=== PATIENT | female | born 1955 | race Caucasian/White ===

== ENCOUNTER → 2016-12-15 | Outpatient (CLI) | payer OTHER ==
[~2016-12-15] MED LIST: ATOR10TA15 PO; DIFL0.0512 RIGHT EYE; EMPA1TAB3 PO; GLIM4TAB PO; LOSA100T3 PO; METF500T PO; MULT1TAB PO; NEPA0.3D RIGHT EYE; PRED1SUS RIGHT EYE; VIGA0.5D RIGHT EYE; VITA500C18 PO
[2016-12-15 11:58] LABS: MICRO ALBUMIN RANDOM URINE RAW 61.8 MG/L (0.0-30.0)
[2016-12-15 12:12] LABS: ALKALINE PHOSPHATASE 65 U/L (45-117); ALT (GPT) 34 U/L (10-53); ANION GAP 8 MEQ/L (5-15); AST (GOT) 15 U/L (15-37); BICARBONATE 31.1 MEQ/L (21.0-32.0); BLOOD UREA NITROGEN 16 MG/DL (7-18); CHLORIDE 100 MEQ/L (98-107); GLOMERULAR FILTRATION RATE 99 ML/MIN (>89); GLUCOSE,FASTING 149 MG/DL (74-99); HDL CHOLESTEROL 71.7 MG/DL (40.0-60.0); LDL CHOLESTEROL 109 MG/DL (0-99); POTASSIUM 4.1 MEQ/L (3.5-5.1); SODIUM (NA) 139 MEQ/L (136-145); TOTAL BILIRUBIN ADULT 0.6 MG/DL (0.2-1.0)
[2016-12-15 19:17] LABS: HEMOGLOBIN A1a 0.9 %; HEMOGLOBIN A1b 2.4 %; HEMOGLOBIN Ao 81.1 %; HEMOGLOBIN LA1C 2.4 %; HEMOGLOBIN P3 4.5 %
== END ==
LOC: CLAB 10:59
DX: E11.65 Type 2 diabetes mellitus with hyperglycemia (principal)
CPT/HCPCS: 36415; 80053; 80061; 82043; 83036

== ENCOUNTER → 2017-04-07 | Outpatient (CLI) | payer OTHER ==
[2017-04-07 14:06] LABS: AUTOMATED NEUTROPHIL # 5.1 TH/MM3 (1.8-7.7); BASOPHIL % 0.5 % (0.0-2.0); EOSINOPHIL # 0.3 TH/MM3 (0-0.4); EOSINOPHIL % 3.3 % (0.0-4.0); HEMATOCRIT 45.1 % (35.0-46.0); HEMO FLAGS DIFF FINAL; LYMPHOCYTE # 1.4 TH/MM3 (1.0-4.8); MEAN CELL VOLUME 88.3 FL (80.0-100.0); MEAN CORPUSCULAR HEMOGLOBIN 29.1 PG (27.0-34.0); MEAN CORPUSCULAR HGB CONC 32.9 % (32.0-36.0); MONO % 10.5 % (0.0-8.0); NEUT % 66.7 % (16.0-70.0); PLATELET COUNT 266 TH/MM3 (150-450); RED BLOOD COUNT 5.11 MIL/MM3 (4.00-5.30); RED CELL DISTRIBUTION WIDTH 13.4 % (11.6-17.2); WHITE BLOOD COUNT 7.6 TH/MM3 (4.0-11.0)
--- NOTE | 2017-04-09 10:11 | EKG ---
Date Performed: 04/07/2017 Time Performed: 13:54:27 PTAGE: 61 years EKG: Sinus rhythm LOW QRS VOLTAGE IN PRECORDIAL LEADS MODERATE VOLTAGE CRITERIA FOR LVH, CONSIDER NORMAL VARIANT SAMUEL KIM ECG PREVIOUS TRACING : 07/15/2015 07.05 DOCTOR: Miguel Angel Nolen Interpretating Date/Time 04/09/2017 09:54:45
== END ==
LOC: CPRE 13:39
PROVIDERS: ATTEND Ophthalmology
DX: Z01.812 Encounter for preprocedural laboratory examination (principal); Z01.810 Encounter for preprocedural cardiovascular examination; H25.13 Age-related nuclear cataract, bilateral; R94.31 Abnormal electrocardiogram [ECG] [EKG]
CPT/HCPCS: 36415; 85025; 93005

== ENCOUNTER → 2017-04-12 | Outpatient (CLI) | payer OTHER ==
[2017-04-12 08:19] LABS: AUTOMATED NEUTROPHIL # 4.4 TH/MM3 (1.8-7.7); BASOPHIL % 0.3 % (0.0-2.0); EOSINOPHIL # 0.3 TH/MM3 (0-0.4); EOSINOPHIL % 4.3 % (0.0-4.0); HEMATOCRIT 46.6 % (35.0-46.0); HEMO FLAGS DIFF FINAL; LYMPH % 18.9 % (9.0-44.0); LYMPHOCYTE # 1.3 TH/MM3 (1.0-4.8); MEAN CORPUSCULAR HEMOGLOBIN 29.1 PG (27.0-34.0); MEAN CORPUSCULAR HGB CONC 33.1 % (32.0-36.0); MONO % 10.9 % (0.0-8.0); NEUT % 65.6 % (16.0-70.0); PLATELET COUNT 274 TH/MM3 (150-450); RED CELL DISTRIBUTION WIDTH 13.5 % (11.6-17.2); WHITE BLOOD COUNT 6.6 TH/MM3 (4.0-11.0)
[2017-04-12 08:42] LABS: ANION GAP 11 MEQ/L (5-15); AST (GOT) 17 U/L (15-37); BICARBONATE 27.5 MEQ/L (21.0-32.0); BLOOD UREA NITROGEN 18 MG/DL (7-18); CHLORIDE 101 MEQ/L (98-107); GLOMERULAR FILTRATION RATE 123 ML/MIN (>89); GLUCOSE,FASTING 157 MG/DL (74-99); POTASSIUM 4.1 MEQ/L (3.5-5.1); SODIUM (NA) 139 MEQ/L (136-145)
[2017-04-12 08:46] LABS: ALKALINE PHOSPHATASE 62 U/L (45-117); ALT (GPT) 33 U/L (10-53); HDL CHOLESTEROL 56.2 MG/DL (40.0-60.0); LDL CHOLESTEROL 87 MG/DL (0-99); TOTAL BILIRUBIN ADULT 0.5 MG/DL (0.2-1.0)
[2017-04-12 08:47] LABS: MICRO ALBUMIN RANDOM URINE RAW 15.2 MG/L (0.0-30.0)
[2017-04-12 16:47] LABS: HEMOGLOBIN A1a 0.9 %; HEMOGLOBIN A1b 2.5 %; HEMOGLOBIN Ao 81.2 %; HEMOGLOBIN LA1C 2.4 %; HEMOGLOBIN P3 4.4 %
== END ==
LOC: CLAB 07:47
PROVIDERS: ATTEND Family Medicine
DX: D64.9 Anemia, unspecified (principal); E78.2 Mixed hyperlipidemia; E11.9 Type 2 diabetes mellitus without complications; Z79.899 Other long term (current) drug therapy
CPT/HCPCS: 36415; 80053; 80061; 82043; 83036; 85025

== ENCOUNTER → 2017-04-19 | Day surgery (SDC) | payer OTHER ==
[~2017-04-19] VITALS: Ht 167.6 cm; Wt 95.2 kg
[~2017-04-19] MED LIST changes: +ACETAMINOPHEN 325 MG TAB ONE; +CYCLOPENTOLATE HCL 1% OPHT SOLN 2 ML BTL ONE; +FAMOTIDINE 20 MG/2 ML VIAL ONE; +MIDAZOLAM HCL 2 MG/2 ML VIAL ONE; +ONDANSETRON HCL 4 MG/2 ML VIAL IV PUSH ONE; +PHENYLEPHRINE HCL 10% OPTH SOLN 5 ML BTL ONE; +PROPOFOL 200 MG/20 ML AMP IV ONE; +SODIUM CHLORID 0.9% 500 ML INJ 500 ML ONE; +TETRACAINE 0.5% OPTH SOLN 4 ML BTL ONE; +TOBRAMYCIN/DEXAMETHASONE OPTH OINT 3.5 GM TUBE ONE; +TROPICAMIDE 1% OPHT SOLN 15 ML BTL ONE; +VISCOAT OPHT IRRIG SOLN 0.75 ML SYRINGE RIGHT EYE ONE
[2017-04-19 06:50] VITALS: BP 163/90; PULSE 86; RESP 16; TEMP 98.4; O2SAT 97
[2017-04-19 08:46] VITALS: PULSE 90
[2017-04-19 09:15] VITALS: PULSE 87; TEMP 98.6
[2017-04-19 09:45] VITALS: BP 148/90; PULSE 80; RESP 14; O2SAT 97
--- NOTE | 2017-04-19 11:00 | PD.OP ---
Operative Report Date of Surgery: Apr 19, 2017 Preoperative Diagnosis: (1) Nuclear sclerotic cataract of right eye Postoperative Diagnosis: (1) Pseudophakia of right eye Procedure: phacoemulsification and intraocular lens implant right eye Anesthesia: General Surgeon: Nguyen Aguilar Housekeeping/Laundry(s): none Operation and Findings: Patient was consented for surgery, and taken back to the operating room. She was put under general anesthesia and prepped and draped in the usual sterile fashion for ophthalmic surgery. A wire lid speculum was placed in the right eye. A paracentesis incision was created at the 11 o'clock position on the limbus. Vision blue dye and viscoelastic was injected into the anterior chamber. The main incision was created at the 8 o'clock position on the limbus with a 2.4 mm keratome. A continuous curvilinear capsulorrhexis was made on the anterior lens capsule. Hydrodissection was used to separate the lens from the capsule. Phacoemulsification was used to remove the lens nucleus material. Irrigation and aspiration was used to remove the remaining cortical material. The lens implant ([id number]) was placed in the capsular bag. Viscoelastic was removed with irrigation and aspiration. The incisions were irrigated and found to be watertight. Tobradex ointment, a patch, and shield were placed on the right eye. The patient was sent to PACU in stable condition. Nguyen Aguilar MD Apr 19, 2017 11:00
== END | disposition home or self-care (01) ==
LOC: PHSDC 06:27
PROVIDERS: ATTEND Ophthalmology
DX: H25.11 Age-related nuclear cataract, right eye (principal)
CPT/HCPCS: 00142; 66984; J2250; J2405; J7040; V2632

== ENCOUNTER → 2017-05-01 | Outpatient (CLI) | payer OTHER ==
[~2017-05-01] MED LIST changes: -ACETAMINOPHEN 325 MG TAB ONE; -CYCLOPENTOLATE HCL 1% OPHT SOLN 2 ML BTL ONE; -DIFL0.0512 RIGHT EYE; -FAMOTIDINE 20 MG/2 ML VIAL ONE; -MIDAZOLAM HCL 2 MG/2 ML VIAL ONE; -ONDANSETRON HCL 4 MG/2 ML VIAL IV PUSH ONE; -PHENYLEPHRINE HCL 10% OPTH SOLN 5 ML BTL ONE; -PROPOFOL 200 MG/20 ML AMP IV ONE; -SODIUM CHLORID 0.9% 500 ML INJ 500 ML ONE; -TETRACAINE 0.5% OPTH SOLN 4 ML BTL ONE; -TOBRAMYCIN/DEXAMETHASONE OPTH OINT 3.5 GM TUBE ONE; -TROPICAMIDE 1% OPHT SOLN 15 ML BTL ONE; +VIGA0.5D LEFT EYE; -VISCOAT OPHT IRRIG SOLN 0.75 ML SYRINGE RIGHT EYE ONE
[2017-05-01 13:06] LABS: AUTOMATED NEUTROPHIL # 5.4 TH/MM3 (1.8-7.7); BASOPHIL % 0.3 % (0.0-2.0); EOSINOPHIL # 0.2 TH/MM3 (0-0.4); EOSINOPHIL % 2.5 % (0.0-4.0); HEMATOCRIT 43.3 % (35.0-46.0); HEMO FLAGS DIFF FINAL; LYMPHOCYTE # 1.9 TH/MM3 (1.0-4.8); MEAN CORPUSCULAR HEMOGLOBIN 29.3 PG (27.0-34.0); MEAN CORPUSCULAR HGB CONC 33.3 % (32.0-36.0); MONO % 8.2 % (0.0-8.0); PLATELET COUNT 261 TH/MM3 (150-450); RED BLOOD COUNT 4.92 MIL/MM3 (4.00-5.30); RED CELL DISTRIBUTION WIDTH 13.2 % (11.6-17.2); WHITE BLOOD COUNT 8.2 TH/MM3 (4.0-11.0)
== END ==
LOC: CLAB 12:46
PROVIDERS: ATTEND Ophthalmology
DX: I10 Essential (primary) hypertension (principal)
CPT/HCPCS: 36415; 85025

== ENCOUNTER → 2017-05-10 | Day surgery (SDC) | payer OTHER ==
[~2017-05-10] VITALS: Ht 170.2 cm; Wt 93.5 kg
[~2017-05-10] MED LIST changes: +ACETAMINOPHEN 325 MG TAB ONE; +BRIN1SUS2 LEFT EYE; +CHLORHEXIDINE GLUCONATE 2 % 1 PACK (2 CLOTHS) TOPICAL PRN; +FAMOTIDINE 20 MG/2 ML VIAL ONE; +INSULIN HUMAN REGULAR 1,000 UNITS/10 ML VIAL SQ PRN; +LACTATED RINGER'S 1000 ML IV PRN; +LIDOCAINE HCL 1% PF 30 ML VIAL ONE; +LOSA100T2 PO; +METOPROLOL TARTRATE 25 MG TAB PO PRN; +MIDAZOLAM HCL 2 MG/2 ML VIAL ONE; +NEPA0.3D EACH EYE; +PANT40TA3 PO; +POVIDONE IODINE 5% (ANTISEPSIS KIT) 4 APPLICATIONS EACH NARE PRN; +PRED1SUS EACH EYE; +SODIUM CHLORID 0.9% 500 ML IV PRN; +TIMO0.5S30 LEFT EYE; +TOBRAMYCIN/DEXAMETHASONE OPTH OINT 3.5 GM TUBE ONE; +TRYPAN BLUE 0.5 ML OPHT DYE SYRINGE ONE; +VISCOAT OPHT IRRIG SOLN 0.75 ML SYRINGE ONE
[2017-05-10 09:00] VITALS: BP 163/85; PULSE 91; RESP 16; TEMP 98.1; O2SAT 95
[2017-05-10] MEDS: TROPICAMIDE 1% OPHT SOLN 15 ML BTL LEFT EYE SCH ×3 (09:10→09:20)
[2017-05-10] MEDS: CYCLOPENTOLATE HCL 1% OPHT SOLN 2 ML BTL LEFT EYE SCH ×3 (09:10→09:20)
[2017-05-10] MEDS: TETRACAINE 0.5% OPTH SOLN 4 ML BTL LEFT EYE SCH ×4 (09:10→10:37)
[2017-05-10] MEDS: PHENYLEPHRINE HCL 10% OPTH SOLN 5 ML BTL LEFT EYE SCH ×3 (09:10→09:20)
--- NOTE | 2017-05-10 10:54 | PD.OP ---
Operative Report Date of Surgery: May 10, 2017 Preoperative Diagnosis: (1) Nuclear sclerotic cataract of left eye Postoperative Diagnosis: (1) Pseudophakia of left eye Procedure: phacoemulsification and intraocular lens implant left eye Anesthesia: General Surgeon: Nguyen Aguilar Blankbook Forwarder(s): none Operation and Findings: Patient was consented for surgery and taken back to the operating room. She was put under general anesthesia and prepped and draped in the usual sterile fashion for ophthalmic surgery. A wire lid speculum was placed in the left eye. A paracentesis incision was created at the 5 o'clock position on the limbus. Vision blue dye and viscoelastic was injected into the anterior chamber. The main incision was created at the 2 o'clock position on the limbus with a 2.4 mm keratome. A continuous curvilinear capsulorrhexis was made on the anterior lens capsule. Phacoemulsification was used to remove the lens nucleus material. Irrigation and aspiration was used to remove the remaining cortical material. A small posterior rent was noted on the capsule. The lens implant ([id number] [id number] SN [id number]) was placed in the sulcus. Viscoelastic was removed with irrigation and aspiration. The incisions were irrigated and found to be watertight. A 10-0 nylon suture was placed on the main incision. Tobradex ointment, a patch, and shield were placed on the left eye. The patient was sent to PACU in stable condition. Nguyen Aguilar MD May 10, 2017 10:54
[2017-05-10 11:25] VITALS: TEMP 98.1
[2017-05-10 11:55] VITALS: BP 148/86; PULSE 92; RESP 16; O2SAT 96
== END | disposition home or self-care (01) ==
LOC: PHSDC 08:38
PROVIDERS: ATTEND Ophthalmology
DX: H25.12 Age-related nuclear cataract, left eye (principal); Z96.1 Presence of intraocular lens; I10 Essential (primary) hypertension; E78.5 Hyperlipidemia, unspecified
CPT/HCPCS: 00142; 66984; J2250; J3010; J7040; V2632

== ENCOUNTER 2017-05-14 15:00 | Inpatient (IN) | payer OTHER ==
[~2017-05-14] VITALS: Ht 170.2 cm; Wt 90.0 kg
[~2017-05-14 15:00] MED LIST changes: -ACETAMINOPHEN 325 MG TAB ONE; -BRIN1SUS2 LEFT EYE; -CHLORHEXIDINE GLUCONATE 2 % 1 PACK (2 CLOTHS) TOPICAL PRN; -FAMOTIDINE 20 MG/2 ML VIAL ONE; -INSULIN HUMAN REGULAR 1,000 UNITS/10 ML VIAL SQ PRN; -LACTATED RINGER'S 1000 ML IV PRN; -LIDOCAINE HCL 1% PF 30 ML VIAL ONE; -LOSA100T2 PO; -METOPROLOL TARTRATE 25 MG TAB PO PRN; -MIDAZOLAM HCL 2 MG/2 ML VIAL ONE; -NEPA0.3D EACH EYE; -PANT40TA3 PO; -POVIDONE IODINE 5% (ANTISEPSIS KIT) 4 APPLICATIONS EACH NARE PRN; -PRED1SUS EACH EYE; -SODIUM CHLORID 0.9% 500 ML IV PRN; -TIMO0.5S30 LEFT EYE; -TOBRAMYCIN/DEXAMETHASONE OPTH OINT 3.5 GM TUBE ONE; -TRYPAN BLUE 0.5 ML OPHT DYE SYRINGE ONE; -VIGA0.5D RIGHT EYE; -VISCOAT OPHT IRRIG SOLN 0.75 ML SYRINGE ONE
[2017-05-14 15:02] VITALS: BP 161/72; PULSE 109; RESP 20; TEMP 98.5; O2SAT 99
[2017-05-14] MEDS ORDERED: LOSA100T2 PO (15:42)
[2017-05-14 15:53] LABS: BLOOD, URINE NEG (NEG); COMMENT (UR) CULT NOT INDICATED; CULTURE IF INDICATED CULT NOT INDICATED; GLUCOSE,URINE 1000 mg/dL (NEG); KETONE, URINE 40 mg/dL (NEG); MUCUS URINE FEW /lpf (OCC); NITRITE,URINE NEG (NEG); PH, URINE 5.5 (5.0-8.5); SQUAMOUS EPITHELIAL CELL URINE 3 /hpf (0-5); URINE COLOR YELLOW (YELLW/STRAW)
[2017-05-14] MEDS ORDERED: SODIUM CHLOR 0.9% 1000 ML INJ 1,000 ML IV SCH (16:35)
[2017-05-14] MEDS ORDERED: ONDANSETRON HCL 4 MG/2 ML VIAL IVP ONE (16:45)
[2017-05-14] MEDS ORDERED: SODIUM CHLORIDE 0.9% FLUSH 10 ML FLUSH IV FLUSH PRN ×2 (16:45→19:00)
[2017-05-14] MEDS ORDERED: FAMOTIDINE 20 MG/2 ML VIAL IV PUSH ONE (16:45)
[2017-05-14 17:20] LABS: AUTOMATED NEUTROPHIL # 13.9 TH/MM3 (1.8-7.7); BASOPHIL % 0.1 % (0.0-2.0); EOSINOPHIL % 0.2 % (0.0-4.0); HEMATOCRIT 51.9 % (35.0-46.0); HEMO FLAGS DIFF FINAL; LYMPH % 11.7 % (9.0-44.0); LYMPHOCYTE # 2.1 TH/MM3 (1.0-4.8); MEAN CELL VOLUME 87.1 FL (80.0-100.0); MEAN CORPUSCULAR HEMOGLOBIN 29.9 PG (27.0-34.0); MEAN CORPUSCULAR HGB CONC 34.3 % (32.0-36.0); MONO % 9.6 % (0.0-8.0); NEUT % 78.4 % (16.0-70.0); PLATELET COUNT 372 TH/MM3 (150-450); RED BLOOD COUNT 5.96 MIL/MM3 (4.00-5.30); RED CELL DISTRIBUTION WIDTH 13.5 % (11.6-17.2); WHITE BLOOD COUNT 17.8 TH/MM3 (4.0-11.0)
--- NOTE | 2017-05-14 17:27 | PD ---
HPI Chief Complaint: GI Complaint Time Seen by Provider: 16:56 Travel History International Travel<30 days: No Contact w/Intl Traveler<30days: No Traveled to known affect area: No History of Present Illness HPI Patient is a 61-year-old female comes in complaining of nausea, vomiting, abdominal pain. She says this started Froylan, and she thought it was related to the as he does old might she was taking for her recent eye surgery, but she has since stopped taking the medication and is still feeling very nauseous. She says she has pain across the middle of her abdomen. She denies any headache or pressure sensation to her eye. She says her vision is fine. She denies fever or chills, but did have a cold sweats during the first episode of nausea and vomiting. She denies any dysuria, but says that her urine has a foul odor. PFSH Past Medical History Cancer: No Cardiovascular Problems: Yes (HTN) Diabetes: Yes (METFORMIN) Patient Takes Glucophage: Yes (METFORMIN ) Diminished Hearing: No Endocrine: Yes Gastrointestinal Disorders: No Genitourinary: No Hepatitis: No Hiatal Hernia: No Hypertension: Yes Immune Disorder: No Musculoskeletal: Yes (PAIN RIGHT KNEE, CALCIFICATION IN LEFT SHOULDER) Neurologic: Yes (LEFT CTR 06/2015) Psychiatric: No Reproductive: No Respiratory: No Pneumonia: Yes Thyroid Disease: No Menopausal: Yes Dilation and Curettage (D&C): Yes Past Surgical History Abdominal Surgery: No AICD: No Body Medical Devices: NONE Cardiac Surgery: No Ear Surgery: No Endocrine Surgery: No Eye Surgery: No Genitourinary Surgery: No Gynecologic Surgery: Yes (D&C; TUBAL LIGATION; PARTIAL HYSTERECTOMY ) Hysterectomy: Yes (PARTIAL ) Joint Replacement: No Neurologic Surgery: Yes (LT CTR 06/2015) Oral Surgery: Yes (WISDOM TEETH EXTRACTED) Pacemaker: No Thoracic Surgery: No Other Surgery: Yes Social History Alcohol Use: Yes (OCCASIONAL) Tobacco Use: No (QUIT 15 YEARS AGO ) Substance Use: No Allergies-Medications (Allergen,Severity, Reaction): Coded Allergies: No Known Allergies (Unverified , 05/17/17) Reported Meds & Prescriptions Reported Meds & Active Scripts Active Vigamox Opth Drops (Moxifloxacin Opth Drops) 0.5 % Soln 1 Drop LEFT EYE QID Reported Losartan-Hydrochlorothiazide 100-25 Mg Tab 1 Tab PO DAILY Centrum Silver Adult 50+ (Multiple Vitamins W/ Minerals) 1 Tab Tab 1 Tab PO DAILY Vitamin C Sr (Ascorbic Acid) 500 Mg Caper 500 Mg PO DAILY Jardiance (Empagliflozin) 25 Mg Tab 25 Mg PO DAILY Atorvastatin (Atorvastatin Calcium) 10 Mg Tab 10 Mg PO HS Metformin (Metformin HCl) 500 Mg Tab 500 Mg PO BIDPC With meals Glimepiride 4 Mg Tab 4 Mg PO BID Take with breakfast or first main meal Review of Systems Except as stated in HPI: all other systems reviewed are Neg General / Constitutional: No: Fever, Chills Eyes: No: Blurred Vision HENT: No: Headaches, Lightheadedness Cardiovascular: No: Chest Pain or Discomfort Respiratory: No: Shortness of Breath Gastrointestinal: Positive: Nausea, Vomiting, Abdominal Pain Genitourinary: No: Dysuria Musculoskeletal: No: Myalgias Skin: No Rash, No Change in Pigmentation Neurologic: No: Weakness, Dizziness Physical Exam Narrative GENERAL: Awake and alert, in no acute distress. SKIN: Focused skin assessment warm/dry. HEAD: Atraumatic. Normocephalic. EYES: Pupils equal and round. No scleral icterus. ENT: Mucous membranes pink and moist. NECK: Trachea midline. No JVD. CARDIOVASCULAR: Regular rate and rhythm. No murmur appreciated. RESPIRATORY: No accessory muscle use. Clear to auscultation. Breath sounds equal bilaterally. GASTROINTESTINAL: Abdomen soft, nondistended. Tender to palpation across the middle of the abdomen, worse in the right upper quadrant and epigastric area. No rebound or guarding. MUSCULOSKELETAL: No obvious deformities. No clubbing. No cyanosis. No edema. NEUROLOGICAL: Awake and alert. No obvious cranial nerve deficits. Motor grossly within normal limits. Normal speech. PSYCHIATRIC: Appropriate mood and affect; insight and judgment normal. Data Data Last Documented VS Orders Urinalysis - C+S If Indicated (05/14/17 15:17) Basic Metabolic Panel (Bmp) (05/14/17 16:35) Complete Blood Count With Diff (05/14/17 16:35) Lipase (05/14/17 16:35) Lactic Acid (05/14/17 16:35) Prothrombin Time / Inr (Pt) (05/14/17 16:35) Act Partial Throm Time (Ptt) (05/14/17 16:35) Ct Abd/Pel W Iv Contrast(Rout) (05/14/17 16:35) Iv Access Insert/Monitor (05/14/17 16:35) Ecg Monitoring (05/14/17 16:35) Oximetry (05/14/17 16:35) Ondansetron Inj (Zofran Inj) (05/14/17 16:45) Sodium Chlor 0.9% 1000 Ml Inj (Ns 1000 M (05/14/17 16:35) Sodium Chloride 0.9% Flush (Ns Flush) (05/14/17 16:45) Famotidine Inj (Pepcid Inj) (05/14/17 16:45) Hepatic Functional Panel (05/14/17 16:35) Prochlorperazine Inj (Compazine Inj) (05/14/17 17:30) Diphenhydramine Inj (Benadryl Inj) (05/14/17 17:30) Sodium Chlor 0.9% 1000 Ml Inj (Ns 1000 M (05/14/17 18:15) Sodium Chlor 0.9% 1000 Ml Inj (Ns 1000 M (05/14/17 18:15) Sodium Chlor 0.9% 1000 Ml Inj (Ns 1000 M (05/14/17 18:15) Lactic Acid Sepsis Protocol (05/14/17 18:07) Iohexol 350 Inj (Omnipaque 350 Inj) (05/14/17 18:11) Morphine Inj (Morphine Inj) (05/14/17 18:30) Ceftriaxone Inj (Rocephin Inj) (05/14/17 18:45) Admit Order (Ed Use Only) (05/14/17 18:50) Labs MDM Medical Decision Making Medical Screen Exam Complete: Yes Emergency Medical Condition: Yes Medical Record Reviewed: Yes Differential Diagnosis Gastroenteritis versus cholecystitis versus pancreatitis versus colitis Narrative Course Patient is a 61-year-old female comes in complaining of abdominal pain, nausea or vomiting. Exam shows tenderness across the middle of the abdomen. IV established, labs sent. Patient given IV fluids and Zofran. Signed out to Dr. Hendricks to follow up testing and disposition the patient. Scripts Pantoprazole 40 Mg Tab40 Mg PO DAILY #30 TAB Ref 0 Prov:Jacqueline Rodriguez 05/16/17 Margie Nagel MD May 14, 2017 17:27 Urine Glucose (UA) 1000 mg/dL Urine Ketones 40 mg/dL Urine Occult Blood NEG Urine Nitrite NEG Urine Bilirubin NEG Urine Urobilinogen LESS THAN 2.0 MG/DL Urine Leukocyte Esterase SMALL Urine RBC 3 /hpf Urine WBC 4 /hpf Urine Squamous Epithelial 3 /hpf Cells Urine Amorphous Sediment RARE Urine Mucus FEW /lpf Microscopic Urinalysis Comment CULT NOT INDICATED MDM Medical Decision Making Medical Screen Exam Complete: Yes Emergency Medical Condition: Yes Medical Record Reviewed: Yes Differential Diagnosis Gastroenteritis versus cholecystitis versus pancreatitis versus colitis Narrative Course Patient is a 61-year-old female comes in complaining of abdominal pain, nausea or vomiting. Exam shows tenderness across the middle of the abdomen. IV established, labs sent. Patient given IV fluids and Zofran. Signed out to Dr. Hendricks to follow up testing and disposition the patient. Margie Nagel MD May 14, 2017 17:27
[2017-05-14] MEDS ORDERED: MORPHINE SULFATE 4 MG/ML INJ IV PUSH ONE (17:30)
[2017-05-14] MEDS ORDERED: diphenhydrAMINE HCL 50 MG/ML VIAL IV PUSH ONE (17:30)
[2017-05-14] MEDS ORDERED: PROCHLORPERAZINE INJ 10 MG/2 ML VIAL IV PUSH ONE (17:30)
[2017-05-14 17:32] LABS: BICARBONATE 20.8 MEQ/L (21.0-32.0); POTASSIUM 3.1 MEQ/L (3.5-5.1)
[2017-05-14 17:34] LABS: INDIRECT BILIRUBIN 0.8 MG/DL (0.0-0.8)
[2017-05-14 17:44] LABS: APTT (PATIENT) 28.1 SEC (24.3-30.1); PROTHROMBIN TIME - PATIENT 11.1 SEC (9.8-11.6)
--- NOTE | 2017-05-14 17:56 | PD ---
Physical Exam Date Seen by Provider: May 14, 2017 Narrative Care was assumed from Dr. Nagel at 5 PM. This patient is being seen for abdominal pain associated with nausea and vomiting. Data Data Last Documented VS Vital Signs Date Time Temp Pulse Resp B/P Pulse Ox O2 Delivery O2 Flow Rate FiO2 05/14/17 15:02 98.5 109 20 161/72 99 Room Air Orders Urinalysis - C+S If Indicated (05/14/17 15:17) Basic Metabolic Panel (Bmp) (05/14/17 16:35) Complete Blood Count With Diff (05/14/17 16:35) Lipase (05/14/17 16:35) Lactic Acid (05/14/17 16:35) Prothrombin Time / Inr (Pt) (05/14/17 16:35) Act Partial Throm Time (Ptt) (05/14/17 16:35) Ct Abd/Pel W Iv Contrast(Rout) (05/14/17 16:35) Iv Access Insert/Monitor (05/14/17 16:35) Ecg Monitoring (05/14/17 16:35) Oximetry (05/14/17 16:35) Ondansetron Inj (Zofran Inj) (05/14/17 16:45) Sodium Chlor 0.9% 1000 Ml Inj (Ns 1000 M (05/14/17 16:35) Sodium Chloride 0.9% Flush (Ns Flush) (05/14/17 16:45) Famotidine Inj (Pepcid Inj) (05/14/17 16:45) Hepatic Functional Panel (05/14/17 16:35) Prochlorperazine Inj (Compazine Inj) (05/14/17 17:30) Diphenhydramine Inj (Benadryl Inj) (05/14/17 17:30) Sodium Chlor 0.9% 1000 Ml Inj (Ns 1000 M (05/14/17 18:15) Sodium Chlor 0.9% 1000 Ml Inj (Ns 1000 M (05/14/17 18:15) Sodium Chlor 0.9% 1000 Ml Inj (Ns 1000 M (05/14/17 18:15) Lactic Acid Sepsis Protocol (05/14/17 18:07) Iohexol 350 Inj (Omnipaque 350 Inj) (05/14/17 18:11) Morphine Inj (Morphine Inj) (05/14/17 18:30) Ceftriaxone Inj (Rocephin Inj) (05/14/17 18:45) Labs Laboratory Tests Test 05/14/17 05/14/17 15:26 16:30 Urine Color YELLOW Urine Turbidity CLEAR Urine pH 5.5 Urine Specific [place] 1.030 Urine Protein 30 mg/dL Urine Glucose (UA) 1000 mg/dL Urine Ketones 40 mg/dL Urine Occult Blood NEG Urine Nitrite NEG Urine Bilirubin NEG Urine Urobilinogen LESS THAN 2.0 MG/DL Urine Leukocyte Esterase SMALL Urine RBC 3 /hpf Urine WBC 4 /hpf Urine Squamous Epithelial 3 /hpf Cells Urine Amorphous Sediment RARE Urine Mucus FEW /lpf Microscopic Urinalysis Comment CULT NOT INDICATED White Blood Count 17.8 TH/MM3 Red Blood Count 5.96 MIL/MM3 Hemoglobin 17.8 GM/DL Hematocrit 51.9 % Mean Corpuscular Volume 87.1 FL Mean Corpuscular Hemoglobin 29.9 PG Mean Corpuscular Hemoglobin 34.3 % Concent Red Cell Distribution Width 13.5 % Platelet Count 372 TH/MM3 Mean Platelet Volume 8.4 FL Neutrophils (%) (Auto) 78.4 % Lymphocytes (%) (Auto) 11.7 % Monocytes (%) (Auto) 9.6 % Eosinophils (%) (Auto) 0.2 % Basophils (%) (Auto) 0.1 % Neutrophils # (Auto) 13.9 TH/MM3 Lymphocytes # (Auto) 2.1 TH/MM3 Monocytes # (Auto) 1.7 TH/MM3 Eosinophils # (Auto) 0.0 TH/MM3 Basophils # (Auto) 0.0 TH/MM3 CBC Comment DIFF FINAL Differential Comment Prothrombin Time 11.1 SEC Prothromb Time International 1.0 RATIO Ratio Activated Partial 28.1 SEC Thromboplast Time Sodium Level 133 MEQ/L Potassium Level 3.1 MEQ/L Chloride Level 97 MEQ/L Carbon Dioxide Level 20.8 MEQ/L Anion Gap 15 MEQ/L Blood Urea Nitrogen 32 MG/DL Creatinine 0.79 MG/DL Estimat Glomerular Filtration 74 ML/MIN Rate Random Glucose 342 MG/DL Lactic Acid Level 2.7 mmol/L Calcium Level 9.1 MG/DL Total Bilirubin 1.0 MG/DL Direct Bilirubin 0.2 MG/DL Indirect Bilirubin 0.8 MG/DL Aspartate Amino Transf 11 U/L (AST/SGOT) Alanine Aminotransferase 26 U/L (ALT/SGPT) Alkaline Phosphatase 82 U/L Total Protein 8.3 GM/DL Albumin 4.0 GM/DL Lipase 96 U/L MDM Supervised Visit with [facility]: No Narrative Course The patient is still complaining with nausea and significant pain. As been treated with Zofran and Pepcid so far. I have added Compazine, Benadryl and morphine. CBC & BMP Diagram 05/14/17 16:30 Lactic acid is 2.7. LFTs are normal. Lipase is normal. UA has small leukocyte esterase and [address] abd/pelvis>>Fatty liver and probable left adrenal adenoma. No CT findings to explain abd pain and vomiting. This patient will be admitted for severe sepsis, possible UTI, abdominal pain and vomiting. Critical Care Narrative Aggregate critical care time was 45 minutes. Time to perform other separately billable procedures was not included in the critical care time. My time did not include minutes spent treating any other patients simultaneously or on activities that did not directly contribute to the patient's treatment. The services I provided to this patient were to treat and/or prevent clinically significant deterioration due to severe sepsis I provided critical care services requiring my management, as noted below: Chart data review, documentation time, medication orders and management, vital sign assessments/reviewing monitor data, ordering and reviewing lab tests, ordering and interpreting/reviewing x-rays and diagnostic studies, care of the patient and discussion of the patient with the admitting physicians Sepsis Criteria SIRS Criteria (2 or more): Heart rate over 90, WBC > 48607, < 4000 or > 10% bands Sepsis Criteria (SIRS+source): Infect source susp/known Severe Sepsis (+one): Lactate >2 Diagnosis Primary Impression: Severe sepsis Additional Impressions: UTI (urinary tract infection) Qualified Code: N39.0 - Urinary tract infection without hematuria, site unspecified Abdominal pain Qualified Code: R10.11 - Right upper quadrant abdominal pain Vomiting Qualified Code: R11.2 - Non-intractable vomiting with nausea, unspecified vomiting type Admitting Information Admitting Physician Requests: Admit Condition: Nelly Talamantes MD May 14, 2017 17:55
[2017-05-14] MEDS ORDERED: IOHEXOL 350 MG/ML 10 ML VIAL (for RAD DIAG) IV ONE (18:11)
[2017-05-14] MEDS ORDERED: SODIUM CHLOR 0.9% 1000 ML INJ 1,000 ML IV ONE ×3 (18:15)
--- NOTE | 2017-05-14 18:28 | RADRPT ---
EXAM DATE/TIME: 05/14/2017 17:54 [facility] COMPARISON: No previous studies available for comparison. INDICATIONS : Diffuse abdomen pain with nausea and vomiting for two days. IV CONTRAST: 92 cc Omnipaque 350 (iohexol) IV ORAL CONTRAST: No oral contrast ingested. RADIATION DOSE: 12.55 CTDIvol (mGy) MEDICAL HISTORY : Hypertension. Cardiovascular disease SURGICAL HISTORY : Hysterectomy. ENCOUNTER: Initial ACUITY: 2 days PAIN SCALE: 7/10 LOCATION: Bilateral abdomen TECHNIQUE: Volumetric scanning of the abdomen and pelvis was performed. Using automated exposure control and ad justment of the mA and/or kV according to patient size, radiation dose was kept as low as reasonably achievable to obtain optimal diagnostic quality images. DICOM format image data is available electro nically for review and comparison. FINDINGS: CT Abdomen: The spleen, pancreas, kidneys, right adrenal are unremarkable. There is no evidence for a ny appreciable pathological adenopathy, free fluid, or bowel obstruction. The liver is fatty without focal lesions or technique. Approximate 2 cm low attenuating left adrenal nodule is seen. CT pelvis: There is no evidence for mass, abscess formation, or any significant adenopathy within the pelvis. CONCLUSION: Fatty liver and probable left adrenal adenoma. Jovita Bernard MD on May 14, 2017 at 18:22 Board Certified Radiologist. This report was verified electronically.
[2017-05-14] MEDS ORDERED: MORPHINE SULFATE 8 MG/ML INJ IV PUSH ONE (18:30)
[2017-05-14] MEDS ORDERED: cefTRIAXone INJ 1,000 MG in SODIUM CHLORIDE 0.9% INJ 25 ML IV ONE (18:45)
[2017-05-14] MEDS ORDERED: NALOXONE HCL 0.4 MG/ML AMP IV PRN (19:00)
[2017-05-14] MEDS ORDERED: MAGNESIUM HYDROXIDE SUSP 30 ML CUP PO PRN (19:00)
[2017-05-14] MEDS ORDERED: LACTULOSE SYRUP 20 GM/30 ML CUP PO PRN (19:00)
[2017-05-14] MEDS ORDERED: ONDANSETRON HCL 4 MG/2 ML VIAL IVP PRN (19:00)
[2017-05-14] MEDS ORDERED: BISACODYL 10 MG SUPP RECTAL PRN (19:00)
[2017-05-14] MEDS ORDERED: DEXTROSE 50% IN WATER 50 ML VIAL(D50) IV PRN (19:00)
[2017-05-14] MEDS ORDERED: SENNOSIDES 8.6 MG TAB PO PRN (19:00)
[2017-05-14] MEDS ORDERED: GLUCAGON 1 MG/ML VIAL OTHER PRN (19:00)
[2017-05-14 19:51] VITALS: BP 131/78; PULSE 71; RESP 16; O2SAT 97
[2017-05-14 19:52] VITALS: RESP 16; O2SAT 97
[2017-05-14] MEDS: SODIUM CHLORIDE 0.9% FLUSH 10 ML FLUSH IV FLUSH SCH (21:00)
[2017-05-14 21:03] LABS: LACTIC ACID GHOST NOT REPORTABLE
[2017-05-14 22:34] VITALS: BP 139/79; PULSE 88; RESP 18; TEMP 98.7; O2SAT 96
[2017-05-14] MEDS: DOCUSATE SODIUM 50 MG/SENNA 8.6 MG TAB PO SCH (23:51)
[2017-05-14] MEDS: HEPARIN SODIUM - SQ 10,000 UNITS/ML VIAL SQ SCH (23:52)
[2017-05-14] MEDS: INSULIN ASPART SUPPLEMENTAL SCALE SQ SCH (23:53)
[2017-05-14] MEDS: SODIUM CHLOR 0.45% 1000 ML INJ 1,000 ML IV SCH (23:54)
--- NOTE | 2017-05-14 23:58 | HHI.HP ---
HPI Service [facility] Primary Care Physician Earle Russell, DO Admission Diagnosis sepsis, abd pain, vomiting Diagnoses: Travel History International Travel<30 Days: No Contact w/Intl Traveler <30 Da: No Traveled to Known Affected Are: No History of Present Illness This is a 61 year-old female patient of . She was seen at the emergency department at [facility] with 3 days of nausea, vomiting, abdominal pain most in the right upper quadrant. The patient had cataract surgery on her left eye one week prior. She was also complaining of lightheadedness. She was seen by the undersigned in room D 41. She is alert and oriented. Feeling a little better since she received some pain and nausea medications. She received 1 g of IV Rocephin also IV fluids. She has been complaining of lightheadedness. She was found with lactic acid level of 2.7 and a white count of 417.8. She denies any urinary symptoms. No blood in her vomitus. No trouble breathing. Review of Systems Other As detailed above, 10 systems reviewed otherwise negative Past Family Social History Past Medical History Obesity diabetes mellitus cataract Hypertension hyperlipidemia Past Surgical History Left Cataract surgery one week ago Left carpal tunnel release Tubal ligation Partial hysterectomy Left shoulder surgery Reported Medications Reported Meds & Active Scripts Active Vigamox Opth Drops (Moxifloxacin Opth Drops) 0.5 % Soln 1 Drop LEFT EYE QID Ilevro Opth Drops (Nepafenac) 0.3 % Soln 1 Drop RIGHT EYE DAILY Reported Timolol Opth Drops 0.5 % Soln 1 Drop LEFT EYE BID Simbrinza Opth Drops (Brinzolamide-Brimonidine Opth Drops) 1-0.2% Susp 1 Drop LEFT EYE TID Losartan-Hydrochlorothiazide 100-25 Mg Tab 1 Tab PO DAILY Pred Forte Opth 1% (Prednisolone Acetate Opth 1%) 1% Susp 1 Drop RIGHT EYE QID Centrum Silver Adult 50+ (Multiple Vitamins W/ Minerals) 1 Tab Tab 1 Tab PO DAILY Vitamin C Sr (Ascorbic Acid) 500 Mg Caper 500 Mg PO DAILY Jardiance (Empagliflozin) 25 Mg Tab 25 Mg PO DAILY Atorvastatin (Atorvastatin Calcium) 10 Mg Tab 10 Mg PO HS Metformin (Metformin HCl) 500 Mg Tab 500 Mg PO BIDPC With meals Glimepiride 4 Mg Tab 4 Mg PO BID Take with breakfast or first main meal Allergies: Coded Allergies: No Known Allergies (Unverified , 05/14/17) Family History Reviewed but not contributory Social History No alcohol, no tobacco or illicit drug use Physical Exam Vital Signs Vital Signs Date Time Temp Pulse Resp B/P Pulse Ox O2 Delivery O2 Flow Rate FiO2 05/14/17 22:34 98.7 88 18 139/79 96 05/14/17 19:52 16 97 Room Air 05/14/17 19:51 71 16 131/78 97 Room Air 05/14/17 15:02 98.5 109 20 161/72 99 Room Air Physical Exam GENERAL: This is a pleasant, obese, well-developed patient, in no apparent distress. SKIN: No rashes, ecchymoses or lesions. Cool and dry. HEAD: Atraumatic. Normocephalic. No temporal or scalp tenderness. EYES: Left eye with a patch in place ENT: Nose without bleeding, purulent drainage or septal hematoma. Throat without erythema, tonsillar hypertrophy or exudate. Uvula midline. Airway patent. NECK: Trachea midline. No JVD or lymphadenopathy. Supple, nontender, no meningeal signs. CARDIOVASCULAR: Regular rate and rhythm without murmurs, gallops, or rubs. RESPIRATORY: Clear to auscultation. Breath sounds equal bilaterally. No wheezes , rales, or rhonchi. GASTROINTESTINAL: Abdomen soft, tender right upper quadrant MUSCULOSKELETAL: Extremities without clubbing, cyanosis, or edema. No joint tenderness, effusion, or edema noted. No calf tenderness. Negative Homans sign bilaterally. NEUROLOGICAL: Awake and alert. Cranial nerves II through XII intact. Normal speech. Laboratory Laboratory Tests Test 05/14/17 05/14/17 05/14/17 05/14/17 15:26 16:30 18:45 22:00 Urine Color YELLOW Urine Turbidity CLEAR Urine pH 5.5 Urine Specific [place] 1.030 Urine Protein 30 Urine Glucose (UA) 1000 Urine Ketones 40 Urine Occult Blood NEG Urine Nitrite NEG Urine Bilirubin NEG Urine Urobilinogen LESS THAN 2.0 Urine Leukocyte Esterase SMALL Urine RBC 3 Urine WBC 4 Urine Squamous Epithelial 3 Cells Urine Amorphous Sediment RARE Urine Mucus FEW Microscopic Urinalysis Comment CULT NOT INDICATED White Blood Count 17.8 Red Blood Count 5.96 Hemoglobin 17.8 Hematocrit 51.9 Mean Corpuscular Volume 87.1 Mean Corpuscular Hemoglobin 29.9 Mean Corpuscular Hemoglobin 34.3 Concent Red Cell Distribution Width 13.5 Platelet Count 372 Mean Platelet Volume 8.4 Neutrophils (%) (Auto) 78.4 Lymphocytes (%) (Auto) 11.7 Monocytes (%) (Auto) 9.6 Eosinophils (%) (Auto) 0.2 Basophils (%) (Auto) 0.1 Neutrophils # (Auto) 13.9 Lymphocytes # (Auto) 2.1 Monocytes # (Auto) 1.7 Eosinophils # (Auto) 0.0 Basophils # (Auto) 0.0 CBC Comment DIFF FINAL Differential Comment Prothrombin Time 11.1 Prothromb Time International 1.0 Ratio Activated Partial 28.1 Thromboplast Time Sodium Level 133 Potassium Level 3.1 Chloride Level 97 Carbon Dioxide Level 20.8 Anion Gap 15 Blood Urea Nitrogen 32 Creatinine 0.79 Estimat Glomerular Filtration 74 Rate Random Glucose 342 Lactic Acid Level 2.7 2.5 1.7 Calcium Level 9.1 Total Bilirubin 1.0 Direct Bilirubin 0.2 Indirect Bilirubin 0.8 Aspartate Amino Transf 11 (AST/SGOT) Alanine Aminotransferase 26 (ALT/SGPT) Alkaline Phosphatase 82 Total Protein 8.3 Albumin 4.0 Lipase 96 Date/Time Procedure Status Source Growth 05/14/17 18:40 Aerobic Blood Culture Received Blood Peripheral Pending 05/14/17 18:40 Anaerobic Blood Culture Received Blood Peripheral Pending Result Diagram: 05/14/17 1630 05/14/17 1630 Imaging Last 24 hours Impressions Liver Ultrasound 05/15/17 0000 Signed Impressions: Service Date/Time: Monday, May 15, 2017 07:51 - CONCLUSION: Mildly fatty liver. Minimal sludge in the gallbladder. No evidence of biliary tree obstruction. Miguel Angel Richards MD Abdomen/Pelvis CT 05/14/17 1635 Signed Impressions: Service Date/Time: Sunday, May 14, 2017 17:54 - CONCLUSION: Fatty liver and probable left adrenal adenoma. Jovita Bernard MD Assessment and Plan Assessment and Plan Assessment Nausea and vomiting Abdominal pain, mostly in the right upper quadrant Leukocytosis Sepsis Left adrenal enlargement, unclear if clinically relevant Management Patient has been administered on observation status IV fluids Pain control Nausea control IV Zosyn Hida scan ordered, rule out cholecystitis Discussed with patient Discussed with nurse DVT prophylaxis Continue home medications Discussed with emergency physician Chente Chambers MD May 14, 2017 23:58
[2017-05-15] VITALS (12 sets, daily range): BP systolic 116–190; BP diastolic 59–100; PULSE 70–88; RESP 14–19; TEMP 97.6–98.4; O2SAT 95–100
[2017-05-15] MEDS ORDERED: MORPHINE SULFATE 8 MG/ML INJ IV PUSH PRN (00:15)
[2017-05-15] MEDS: PIPERACIL-TAZO 3.375 GM PREMIX 50 ML IV SCH ×4 (00:45→17:51)
[2017-05-15] MEDS: HEPARIN SODIUM - SQ 10,000 UNITS/ML VIAL SQ SCH ×2 (06:35→19:10)
[2017-05-15] MEDS: INSULIN ASPART SUPPLEMENTAL SCALE SQ SCH ×5 (06:40→20:17)
[2017-05-15 08:21] LABS: AUTOMATED NEUTROPHIL # 7.1 TH/MM3 (1.8-7.7); BASOPHIL % 0.5 % (0.0-2.0); EOSINOPHIL # 0.1 TH/MM3 (0-0.4); HEMATOCRIT 42.3 % (35.0-46.0); HEMO FLAGS DIFF FINAL; LYMPH % 20.2 % (9.0-44.0); LYMPHOCYTE # 2.1 TH/MM3 (1.0-4.8); MEAN CELL VOLUME 87.4 FL (80.0-100.0); MEAN CORPUSCULAR HEMOGLOBIN 29.6 PG (27.0-34.0); MEAN CORPUSCULAR HGB CONC 33.8 % (32.0-36.0); MONO % 10.7 % (0.0-8.0); NEUT % 67.6 % (16.0-70.0); PLATELET COUNT 269 TH/MM3 (150-450); RED BLOOD COUNT 4.83 MIL/MM3 (4.00-5.30); RED CELL DISTRIBUTION WIDTH 13.2 % (11.6-17.2); WHITE BLOOD COUNT 10.4 TH/MM3 (4.0-11.0)
[2017-05-15 08:55] LABS: BICARBONATE 25.6 MEQ/L (21.0-32.0); POTASSIUM 3.5 MEQ/L (3.5-5.1)
--- NOTE | 2017-05-15 09:12 | RADRPT ---
EXAM DATE/TIME: 05/15/2017 07:51 [facility] COMPARISON: No previous studies available for comparison. INDICATIONS : Nausea and vomiting. MEDICAL HISTORY : Hyperlipidemia. Pneumonia. Chemotherapy. SURGICAL HISTORY : Tubal ligation. Hysterectomy. Dilation and curettage. Left carpal tunnel surgery. Left cataract rem oval. ENCOUNTER: Initial ACUITY: 3 days PAIN SCORE: 0/10 LOCATION: Abdomen. MEASUREMENTS: LIVER: 17.5 cm length COMMON DUCT: 8 mm RIGHT KIDNEY: 13.5 x 6.9 x 7.4 cm SPLEEN: 11.1 cm length FINDINGS: LIVER: Increased in echotexture without focal lesion or ductal dilatation. COMMON DUCT: No intraluminal mass or stone visualized. GALLBLADDER: Contains no stones, demonstrates no wall thickening or pericholecystic fluid. There is a minimal slud ge present PANCREAS: The visualized portions are within normal limits. RIGHT KIDNEY: No hydronephrosis, stone or mass. SPLEEN: No focal lesion. CONCLUSION: Mildly fatty liver. Minimal sludge in the gallbladder. No evidence of biliary tree obstruction. Miguel Angel Richards MD on May 15, 2017 at 9:10 Board Certified Radiologist. This report was verified electronically.
[2017-05-15] MEDS: SODIUM CHLORIDE 0.9% FLUSH 10 ML FLUSH IV FLUSH SCH ×2 (09:28→21:18)
[2017-05-15] MEDS: DOCUSATE SODIUM 50 MG/SENNA 8.6 MG TAB PO SCH ×2 (09:28→21:16)
[2017-05-15] MEDS: SODIUM CHLOR 0.45% 1000 ML INJ 1,000 ML IV SCH (09:29)
[2017-05-15] MEDS ORDERED: TIMO0.5S30 LEFT EYE (09:35)
[2017-05-15] MEDS ORDERED: BRIN1SUS2 LEFT EYE (09:35)
[2017-05-15] MEDS ORDERED: SINCALIDE 5 MCG/5 ML VIAL IV ONE (14:29)
[2017-05-15] MEDS ORDERED: NON-FORMULARY DRUG (Losartan-Hydrochlorothiazide 1 TAB) PO SCH (15:00)
[2017-05-15] MEDS ORDERED: cloNIDine HCL 0.1 MG TAB PO ONE (15:00)
--- NOTE | 2017-05-15 15:21 | HHI.PR ---
Subjective Interval History Alert, oriented, feels better, no more vomiting, no pain unless on palpation of the right upper quadrant Review of Systems Constitutional Constitutional Remarks 10 systems reviewed and negative except for the above Vitals/Results Intake & Output 05/14/17 05/14/17 05/15/17 15:00 23:00 07:00 Intake Total 400 ml Balance 400 ml Intake Oral 400 ml Vital Signs Vital Signs Date Time Temp Pulse Resp B/P Pulse Ox O2 Delivery O2 Flow Rate FiO2 05/15/17 11:54 160/100 05/15/17 11:48 97.9 88 16 190/98 98 05/15/17 08:00 76 05/15/17 07:20 97.9 70 14 128/70 95 05/15/17 04:16 97.6 82 16 116/59 96 05/14/17 22:34 98.7 88 18 139/79 96 05/14/17 19:52 16 97 Room Air 05/14/17 19:51 71 16 131/78 97 Room Air CBC/BMP: 05/15/17 0746 05/15/17 0746 Lab Results Laboratory Tests Test 05/14/17 05/14/17 05/14/17 05/14/17 15:26 16:30 18:45 22:00 Urine Color YELLOW Urine Turbidity CLEAR Urine pH 5.5 Urine Specific [place] 1.030 Urine Protein 30 mg/dL Urine Glucose (UA) 1000 mg/dL Urine Ketones 40 mg/dL Urine Occult Blood NEG Urine Nitrite NEG Urine Bilirubin NEG Urine Urobilinogen LESS THAN 2.0 MG/DL Urine Leukocyte Esterase SMALL Urine RBC 3 /hpf Urine WBC 4 /hpf Urine Squamous Epithelial 3 /hpf Cells Urine Amorphous Sediment RARE Urine Mucus FEW /lpf Microscopic Urinalysis Comment CULT NOT INDICATED White Blood Count 17.8 TH/MM3 Red Blood Count 5.96 MIL/MM3 Hemoglobin 17.8 GM/DL Hematocrit 51.9 % Mean Corpuscular Volume 87.1 FL Mean Corpuscular Hemoglobin 29.9 PG Mean Corpuscular Hemoglobin 34.3 % Concent Red Cell Distribution Width 13.5 % Platelet Count 372 TH/MM3 Mean Platelet Volume 8.4 FL Neutrophils (%) (Auto) 78.4 % Lymphocytes (%) (Auto) 11.7 % Monocytes (%) (Auto) 9.6 % Eosinophils (%) (Auto) 0.2 % Basophils (%) (Auto) 0.1 % Neutrophils # (Auto) 13.9 TH/MM3 Lymphocytes # (Auto) 2.1 TH/MM3 Monocytes # (Auto) 1.7 TH/MM3 Eosinophils # (Auto) 0.0 TH/MM3 Basophils # (Auto) 0.0 TH/MM3 CBC Comment DIFF FINAL Differential Comment Prothrombin Time 11.1 SEC Prothromb Time International 1.0 RATIO Ratio Activated Partial 28.1 SEC Thromboplast Time Sodium Level 133 MEQ/L Potassium Level 3.1 MEQ/L Chloride Level 97 MEQ/L Carbon Dioxide Level 20.8 MEQ/L Anion Gap 15 MEQ/L Blood Urea Nitrogen 32 MG/DL Creatinine 0.79 MG/DL Estimat Glomerular Filtration 74 ML/MIN Rate Random Glucose 342 MG/DL Lactic Acid Level 2.7 mmol/L 2.5 mmol/L 1.7 mmol/L Calcium Level 9.1 MG/DL Total Bilirubin 1.0 MG/DL Direct Bilirubin 0.2 MG/DL Indirect Bilirubin 0.8 MG/DL Aspartate Amino Transf 11 U/L (AST/SGOT) Alanine Aminotransferase 26 U/L (ALT/SGPT) Alkaline Phosphatase 82 U/L Total Protein 8.3 GM/DL Albumin 4.0 GM/DL Lipase 96 U/L Test 05/15/17 07:46 White Blood Count 10.4 TH/MM3 Red Blood Count 4.83 MIL/MM3 Hemoglobin 14.3 GM/DL Hematocrit 42.3 % Mean Corpuscular Volume 87.4 FL Mean Corpuscular Hemoglobin 29.6 PG Mean Corpuscular Hemoglobin 33.8 % Concent Red Cell Distribution Width 13.2 % Platelet Count 269 TH/MM3 Mean Platelet Volume 7.9 FL Neutrophils (%) (Auto) 67.6 % Lymphocytes (%) (Auto) 20.2 % Monocytes (%) (Auto) 10.7 % Eosinophils (%) (Auto) 1.0 % Basophils (%) (Auto) 0.5 % Neutrophils # (Auto) 7.1 TH/MM3 Lymphocytes # (Auto) 2.1 TH/MM3 Monocytes # (Auto) 1.1 TH/MM3 Eosinophils # (Auto) 0.1 TH/MM3 Basophils # (Auto) 0.0 TH/MM3 CBC Comment DIFF FINAL Differential Comment Sodium Level 140 MEQ/L Potassium Level 3.5 MEQ/L Chloride Level 105 MEQ/L Carbon Dioxide Level 25.6 MEQ/L Anion Gap 9 MEQ/L Blood Urea Nitrogen 22 MG/DL Creatinine 0.67 MG/DL Estimat Glomerular Filtration 90 ML/MIN Rate Random Glucose 259 MG/DL Calcium Level 8.3 MG/DL Microbiology Microbiology 05/14/17 Aerobic Blood Culture - Preliminary, Resulted NO GROWTH IN 1 DAY 05/14/17 Anaerobic Blood Culture - Preliminary, Resulted NO GROWTH IN 1 DAY 05/14/17 Aerobic Blood Culture - Preliminary, Resulted NO GROWTH IN 1 DAY 05/14/17 Anaerobic Blood Culture - Preliminary, Resulted NO GROWTH IN 1 DAY Physical Exam General General Appearance: Comfortable, Obese Eyes Eye Exam: Pupils Reactive Ears & Nose Ears & Nose Exam: Nasal Mucosa [place] Neck Neck Exam: Trachea Midline Pulmonary Resp Exam: Breath Sounds Equal, No Distress Cardiology CV Exam: Normal Sinus Rhythm, Good Perfusion Gastrointestinal/Abdomen GI Exam: Non-Tender, Bowel Sounds Present GI Remarks Mild right upper quadrant tenderness Musculoskeletal MS Exam: Normal Gait, Normal Tone Integumentary Skin Exam: Warm, Dry Neurologic Neuro Exam: Awake, Oriented, Speech Clear, Moving All Extremities Psychiatric Psych Exam: Appropriate Responses VTE Prophylaxis VTE Prophylaxis Meds: Heparin Assessment/Plan Assessment/Plan Assessment Nausea and vomiting, improved Abdominal pain, mostly in the right upper quadrant, improved Leukocytosis, improved Sepsis, vital signs stable Left adrenal enlargement, unclear if clinically relevant Management observation status IV fluids Pain control Nausea control IV Zosyn Hida scan ordered, rule out cholecystitis Discussed with patient Discussed with nurse DVT prophylaxis Continue home medications Chente Chambers MD May 15, 2017 15:21
--- NOTE | 2017-05-15 15:31 | RADRPT ---
EXAM DATE/TIME: 05/15/2017 13:00 [facility] COMPARISON: No previous studies available for comparison. INDICATIONS : Abdominal pain with nausea and vomiting. DOSE: 4.1 mCi Tc99m Mebrofenin IV MEDICATION: 1.8 mcg Cholecystokinin IV; No symptomatic response. Cholecystokinin was administered by slow infusion over 8 minutes beginning at 60 minutes. MEDICAL HISTORY : Hypercholesterolemia. SURGICAL HISTORY : Hysterectomy. Tubal ligation. ENCOUNTER: Initial ACUITY: 1 day PAIN SCALE: 5/10 LOCATION: Right upper quadrant TECHNIQUE: Following the intravenous administration of radiotracer, dynamic sequential image were performed with continuous acquisition. Time-activity curves were generated. FINDINGS: HEPATIIC KINETICS: There is prompt uptake of radiotracer in the liver. No focal defects are seen. There is normal rate of washout from the hepatic parenchyma. BILIARY CLEARANCE: Activity is first seen in the extrahepatic biliary system at 10 minutes. There is normal excretion i nto the small bowel. GALLBLADDER: Activity is first seen in the gallbladder at 15 minutes. POST CHOLECYSTOKININ: After Cholecystokinin administration, there is prompt emptying of the gallbladder with a 37.5% ejecti on fraction. Common bile duct kinetics are normal and there is no evidence of biliary obstruction. BILIARY ENTERIC REFLUX: None observed. CLINICAL: The patient was asymptomatic after Cholecystokinin administration. CONCLUSION: 1. Normal uptake and excretion of radiotracer with patent cystic and common hepatic ducts. 2. Low normal gallbladder EF of 37.5% (normal is > 35%). 3. Asymptomatic CCK administration. Andrew Bell MD on May 15, 2017 at 14:55 Board Certified Radiologist. This report was verified electronically.
--- NOTE | 2017-05-15 16:48 | HHI.FF ---
Face to Face Verification Diagnosis: (1) Abdominal pain (2) Severe sepsis Physical Therapy Order: Evaluate and Treat Home Health Nursing Order: Medical education Nursing assessment with vital signs I have seen patient Angelika Hardwick on 05/15/17. My clinical findings support the need for the requested home health care services because: Deconditioned w/ increased weakness I certify that my clinical findings support that this patient is homebound because: Unsafe to leave home unassisted Jacqueline Rodriguez [facility] May 15, 2017 16:48
[2017-05-15] MEDS: HYDROCHLOROTHIAZIDE 25 MG TAB PO SCH (17:51)
[2017-05-15] MEDS: LOSARTAN 50 MG TAB PO SCH (17:51)
[2017-05-15] MEDS ORDERED: BRINZOLAMIDE BRIMONIDINE OPTH LEFT EYE SCH (18:00)
[2017-05-15] MEDS ORDERED: PT:SIMBRINZA OPTH SOL LEFT EYE SCH (18:00)
[2017-05-15] MEDS: prednisoLONE ACETATE 1% OPHT SUSP 5 ML BTL RIGHT EYE SCH ×2 (19:11→21:00)
[2017-05-15] MEDS: MOXIFLOXACIN 0.5% OPHT SOLN 3 ML BTL LEFT EYE SCH ×2 (19:11→21:00)
[2017-05-16] VITALS (7 sets, daily range): BP systolic 139–152; BP diastolic 69–73; PULSE 72–86; RESP 14–18; TEMP 98.2–98.5; O2SAT 97–99
[2017-05-16] MEDS: TIMOLOL MALEATE 0.5% OPHT SOLN 5 ML BTL LEFT EYE SCH ×2 (00:07→08:27)
[2017-05-16] MEDS: SODIUM CHLOR 0.45% 1000 ML INJ 1,000 ML IV SCH (00:10)
[2017-05-16] MEDS: PIPERACIL-TAZO 3.375 GM PREMIX 50 ML IV SCH ×2 (06:25)
[2017-05-16] MEDS: HEPARIN SODIUM - SQ 10,000 UNITS/ML VIAL SQ SCH (06:25)
[2017-05-16] MEDS: INSULIN ASPART SUPPLEMENTAL SCALE SQ SCH ×2 (06:26→13:31)
[2017-05-16] MEDS ORDERED: SIMETHICONE 80 MG CHEWABLE TAB CHEW PRN (08:00)
[2017-05-16] MEDS: prednisoLONE ACETATE 1% OPHT SUSP 5 ML BTL RIGHT EYE SCH ×2 (08:26→14:56)
[2017-05-16] MEDS: MOXIFLOXACIN 0.5% OPHT SOLN 3 ML BTL LEFT EYE SCH ×2 (08:28→14:56)
[2017-05-16] MEDS: DOCUSATE SODIUM 50 MG/SENNA 8.6 MG TAB PO SCH (08:29)
[2017-05-16] MEDS: HYDROCHLOROTHIAZIDE 25 MG TAB PO SCH (08:29)
[2017-05-16] MEDS: LOSARTAN 50 MG TAB PO SCH (08:30)
[2017-05-16] MEDS: SODIUM CHLORIDE 0.9% FLUSH 10 ML FLUSH IV FLUSH SCH (08:33)
[2017-05-16] MEDS ORDERED: MISCELLANEOUS NURSING INFORMATION ONE (09:00)
[2017-05-16] MEDS ORDERED: PANTOPRAZOLE SOD 40 MG DELAYED RELEASE TAB PO SCH (09:00)
[2017-05-16] MEDS ORDERED: NEPAFENAC RIGHT EYE SCH (09:00)
[2017-05-16] MEDS ORDERED: NON-FORMULARY DRUG (Nepafenac Opth Drops (Ilevro Opth Drops) 1 DROP) RIGHT EYE SCH (09:00)
--- NOTE | 2017-05-16 09:05 | HHI.PR ---
Subjective Subjective Remarks c/o heartburn and feeling bloated yesterday after meals no fever no cp no sob no bm, had laxative Review of Systems Constitutional Constitutional Remarks 12 point ros completed, negative except as noted above Vitals/Results Intake & Output 05/15/17 05/15/17 05/16/17 15:00 23:00 07:00 Intake Total 240 ml Balance 240 ml Intake Oral 240 ml # Voids 3 1 # Bowel Movements 1 Vital Signs Vital Signs Date Time Temp Pulse Resp B/P Pulse Ox O2 Delivery O2 Flow Rate FiO2 05/16/17 08:08 98.3 72 14 141/73 99 05/16/17 05:25 98.5 78 18 139/72 98 05/16/17 04:05 78 05/16/17 00:00 84 05/15/17 20:59 98.1 71 18 130/77 100 05/15/17 20:39 97.9 85 19 136/79 97 05/15/17 20:05 78 05/15/17 16:29 98.4 80 15 98 05/15/17 16:18 152/82 05/15/17 16:00 76 05/15/17 12:00 88 05/15/17 11:54 160/100 05/15/17 11:48 97.9 88 16 190/98 98 CBC/BMP: 05/15/17 0746 05/15/17 0746 Physical Exam General General Appearance: Well Developed, Comfortable, Obese Eyes Eye Exam: Pupils Reactive Eye Remarks patch over left eye Ears & Nose Ears & Nose Exam: Nasal Mucosa [place] Neck Neck Exam: Trachea Midline Pulmonary Resp Exam: Breath Sounds Equal, No Distress Cardiology CV Exam: Regular, Normal Sinus Rhythm, Good Perfusion Gastrointestinal/Abdomen GI Exam: Soft, Non-Tender, Bowel Sounds Present, Non-Distended Musculoskeletal MS Exam: Normal Gait, Normal Tone Integumentary Skin Exam: Warm, Dry Extremeties Extremities Exam: No Edema, Pedal Pulses Palpable Neurologic Neuro Exam: Alert, Awake, Oriented, Speech Clear, Moving All Extremities, No Focal Deficits Psychiatric Psych Exam: Appropriate Responses VTE Prophylaxis VTE Prophylaxis Meds: Heparin Assessment/Plan Assessment/Plan Assessment Nausea and vomiting, improved Abdominal pain, mostly in the right upper quadrant, improved Leukocytosis, improved Sepsis, vital signs stable Left adrenal enlargement, unclear if clinically relevant recent left eye cataract surgery Findings of fatty liver Management dc IVF stop abx cultures negative WBC now normal lactic acid down antiemetics PRN pain control HIDA negative DVT and GI Prophylaxis blood sugars elevated continue with accuchecks AC/HS c/o heartburn, abd. distension added PPI 40 mg po daily and simethicone prn continue with present diet, if she tolerates well, poss dc later today inc. activity poss need GI work up as OP D/W RN D/W Dr. Chambers D/W pt. This patient was seen by myself and Dr. Chambers, this note is written on his behalf. Jacqueline Rodriguez May 16, 2017 09:05
[2017-05-16] MEDS ORDERED: PANT40TA3 PO (09:06)
--- NOTE | 2017-05-16 09:06 | HHI.DCPOC ---
Discharge Care Plan Diagnosis: (1) Abdominal pain (2) Severe sepsis Your Health Problems Are: Appetite Changes Irregular Bowel Function Goals to Promote Your Health * To prevent worsening of your condition and complications * To maintain your health at the optimal level Directions to Meet Your Goals Take your medications as prescribed Follow your dietary instruction Follow activity as directed Keep your appointments as scheduled Take your immunizations and boosters as scheduled If your symptoms worsen call your PCP, if no PCP go to Urgent Care Center or Emergency Room Smoking is Dangerous to Your Health. Avoid second hand smoke Call the 24-hour hour crisis hotline for domestic abuse at Jacqueline Rodriguez [facility] May 16, 2017 09:06
[2017-05-16] MEDS ORDERED: PNEUMOCOCCAL POLYVALENT INJ 25 MCG/0.5 ML SYR IM ONE (10:00)
--- NOTE | 2017-05-16 15:05 | PD.CONS ---
History of Present Illness Service Ophthalmology Consult Requested By Reason for Consult post op cataract surgery OS Primary Care Physician Earle Russell DO Diagnoses: History of Present Illness 61 yo F 1 week s/p phaco/IOL OS. Admitted for abdominal pain and nausea. Patient is feeling better. No eye pain. Past Family Social History Allergies: Coded Allergies: No Known Allergies (Unverified , 05/14/17) Physical Exam Vital Signs Vital Signs Date Time Temp Pulse Resp B/P Pulse Ox O2 Delivery O2 Flow Rate FiO2 05/16/17 11:01 98.2 77 15 147/69 05/16/17 08:08 98.3 72 14 141/73 99 05/16/17 05:25 98.5 78 18 139/72 98 05/16/17 04:05 78 05/16/17 00:00 84 05/15/17 20:59 98.1 71 18 130/77 100 05/15/17 20:39 97.9 85 19 136/79 97 05/15/17 20:05 78 05/15/17 16:29 98.4 80 15 98 05/15/17 16:18 152/82 05/15/17 16:00 76 Physical Exam Va cc at near OD 20/20, OS 20/20 EOM full OU, no diplopia CVF full OU Pupils 2-1 no APD OU IOP 18, 12 mm Hg Anterior exam OD - normal eyelid, C/S W&Q, K clear, AC deep, pupil round, PCIOL OS - normal eyelid, C/S W&Q, K clear, AC deep, pupil round, PCIOL, residual cortex Dilated OS OS - ON s/p/f, ves normal, vit clear, retina flat Laboratory Date/Time Procedure Status Source Growth 05/14/17 18:40 Aerobic Blood Culture - Preliminary Resulted Blood Peripheral NO GROWTH IN 2 DAYS 05/14/17 18:40 Anaerobic Blood Culture - Preliminary Resulted Blood Peripheral NO GROWTH IN 2 DAYS Result Diagram: 05/15/17 0746 05/15/17 0746 Assessment and Plan Problem List: (1) Pseudophakia of left eye Status: Acute Plan: 1 week s/p cataract surgery OS. Still with residual cortex - will need to go back to OR tomorrow. Scheduled at [facility] outpatient surgery for 11: 30am (Arrival time 9:30am). NPO after midnight tonight. Continue all drops - Vigamox QID, Durezol QID, Ilevro daily, Simbrinza TID, Timolol BID, Travatan qhs OS. s/s of endophthalmitis explained. Eye shield at night. Nguyen Aguilar MD May 16, 2017 15:05
--- NOTE | 2017-05-16 16:01 | HHI.DS ---
Discharge Summary Admission Date May 14, 2017 at 18:52 Discharge Date: May 16, 2017 Admitting Diagnosis sepsis, abd pain, vomiting (1) Severe sepsis (2) Pseudophakia of left eye (3) Abdominal pain (4) Vomiting (5) Hyperglycemia (6) Leukocytosis (7) Lactic acid acidosis (8) Diabetes 1.5, managed as type 2 CBC/BMP: 05/15/17 0746 05/15/17 0746 Significant Findings Laboratory Tests Test 05/14/17 05/14/17 05/14/17 05/15/17 15:26 16:30 18:45 07:46 Urine Protein 30 mg/dL (NEG-TRACE) Urine Glucose (UA) 1000 mg/dL (NEG) Urine Ketones 40 mg/dL (NEG) Urine Leukocyte Esterase SMALL (NEG) Urine Mucus FEW /lpf (OCC) White Blood Count 17.8 TH/MM3 (4.0-11.0) Red Blood Count 5.96 MIL/MM3 (4.00-5.30) Hemoglobin 17.8 GM/DL (11.6-15.3) Hematocrit 51.9 % (35.0-46.0) Neutrophils (%) (Auto) 78.4 % (16.0-70.0) Monocytes (%) (Auto) 9.6 % (0.0-8.0) 10.7 % (0.0-8.0) Neutrophils # (Auto) 13.9 TH/MM3 (1.8-7.7) Monocytes # (Auto) 1.7 TH/MM3 1.1 TH/MM3 (0-0.9) (0-0.9) Sodium Level 133 MEQ/L (136-145) Potassium Level 3.1 MEQ/L (3.5-5.1) Chloride Level 97 MEQ/L (98-107) Carbon Dioxide Level 20.8 MEQ/L (21.0-32.0) Blood Urea Nitrogen 32 MG/DL (7-18) 22 MG/DL (7-18) Estimat Glomerular Filtration 74 ML/MIN (>89) Rate Random Glucose 342 MG/DL 259 MG/DL (74-106) (74-106) Lactic Acid Level 2.7 mmol/L 2.5 mmol/L (0.4-2.0) (0.4-2.0) Aspartate Amino Transf 11 U/L (15-37) (AST/SGOT) Total Protein 8.3 GM/DL (6.4-8.2) Calcium Level 8.3 MG/DL (8.5-10.1) Imaging Last Impressions Liver Ultrasound 05/15/17 0000 Signed Impressions: Service Date/Time: Monday, May 15, 2017 07:51 - CONCLUSION: Mildly fatty liver. Minimal sludge in the gallbladder. No evidence of biliary tree obstruction. Miguel Angel Richards MD Hepatobiliary Scan Nuclear Medicine 05/15/17 0000 Signed Impressions: Service Date/Time: Monday, May 15, 2017 13:00 - CONCLUSION: 1. Normal uptake and excretion of radiotracer with patent cystic and common hepatic ducts. 2. Low normal gallbladder EF of 37.5%% (normal is > 35%%). 3. Asymptomatic CCK administration. Andrew Bell MD Abdomen/Pelvis CT 05/14/17 1635 Signed Impressions: Service Date/Time: Sunday, May 14, 2017 17:54 - CONCLUSION: Fatty liver and probable left adrenal adenoma. Jovita Bernard MD Hospital Course This is a 61 year-old female patient of . She was seen at the emergency department at [facility] with 3 days of nausea, vomiting, abdominal pain most in the right upper quadrant. The patient had cataract surgery on her left eye one week prior. She was also complaining of lightheadedness. She was seen by the undersigned in room D 41. She was alert and oriented. Feeling a little better since she received some pain and nausea medications. She received 1 g of IV Rocephin also IV fluids. She has been complaining of lightheadedness. She was found with lactic acid level of 2.7 and a white count of 417.8. She denies any urinary symptoms. No blood in her vomitus. No trouble breathing. Pt. admitted with: Nausea and vomiting, improved Abdominal pain, mostly in the right upper quadrant, improved Leukocytosis, improved Sepsis, vital signs stable Left adrenal enlargement, unclear if clinically relevant recent left eye cataract surgery Findings of fatty liver During the course of the hospitalization, the following took place: Patient was admitted, continued on IV fluids. Cultures were followed, the remaining negative. CBC was repeated, WBC back to normal. Lactic acid also normal. Cultures remain negative, antibiotics were eventually stopped. Antiemetics were ordered as needed. Appropriate pain control was ordered HIDA scan was ordered, negative findings. She was found with a fatty liver. She complaining of abdominal distention and heartburn symptoms. She was put on Protonix and simethicone when necessary. She was able to tolerate diet. No abdominal pain. She was put on appropriate DVT and GI Prophylaxis blood sugars elevated secondary to stress response continued with accuchecks AC/HS Patient's symptoms improved, CBC improved, no lactic acidosis. Cultures negative. Tolerated diet well, no nausea, no vomiting, no abdominal pain. Patient was evaluated by Dr. Maggy Aguilar, she was recommended to follow up as outpatient tomorrow 05/17/2017 for cataract surgery as she still have residual cortex. She was instructed to continue all drops. Was instructed to continue use an eye shield. Patient was discharge in stable condition Pt Condition on Discharge: Stable Discharge Disposition: Discharge Home Discharge Instructions DIET: Follow Instructions for: Heart Healthy Diet Activities you can perform: Weight Bearing as Kaitlyn Follow up Referrals: Ophthalmology PCP Follow-up New Medications: Pantoprazole (Pantoprazole) 40 Mg Tab 40 MG PO DAILY heartburn #30 Ref 0 TAB Continued Medications: Ascorbic Acid ER (Vitamin C Sr) 500 Mg Caper 500 MG PO DAILY Nutritional Supplement Ref 0 CAP Atorvastatin (Atorvastatin) 10 Mg Tab 10 MG PO HS Cholesterol Management #30 Ref 0 TAB Brinzolamide-Brimonidine Opth Drops (Simbrinza Opth Drops) 1-0.2% Susp 1 DROP LEFT EYE TID cataract #1 Ref 0 BOTTLE Empagliflozin (Jardiance) 25 Mg Tab 25 MG PO DAILY Blood Sugar Management #30 Ref 0 TAB Glimepiride (Glimepiride) 4 Mg Tab 4 MG PO BID Take with breakfast or first main meal Blood Sugar Management #30 Ref 0 TAB Losartan-Hydrochlorothiazide (Losartan-Hydrochlorothiazide) 100-25 Mg Tab 1 TAB PO DAILY Blood Pressure Management #30 Ref 0 TAB Metformin (Metformin) 500 Mg Tab 500 MG PO BIDPC With meals Blood Sugar Management #60 Ref 0 TAB Moxifloxacin Opth Drops (Vigamox Opth Drops) 0.5 % Soln 1 DROP LEFT EYE QID Infection #1 Ref 0 BOTTLE Multiple Vitamins W/ Minerals (Centrum Silver Adult 50+) 1 Tab Tab 1 TAB PO DAILY Nepafenac Opth Drops (Ilevro Opth Drops) 0.3 % Soln 1 DROP RIGHT EYE DAILY Treat Swelling-Pain #1 Ref 1 BOTTLE Prednisolone Acetate Opth 1% (Pred Forte Opth 1%) 1% Susp 1 DROP RIGHT EYE QID Inflammation #1 Ref 0 BOTTLE Timolol Opth Drops (Timolol Opth Drops) 0.5 % Soln 1 DROP LEFT EYE BID cataract #1 Ref 0 BOTTLE Jacqueline Rodriguez [facility] May 16, 2017 16:01
[2017-05-17] MEDS ORDERED: NEPA0.3D EACH EYE (10:20)
[2017-05-17] MEDS ORDERED: PRED1SUS EACH EYE (10:20)
[2017-05-25] MEDS ORDERED: [UNRECOGNIZED DRUG - CODE] LEFT EYE (13:44)
== END 2017-05-16 17:32 | disposition home or self-care (01) | DRG 872 ==
LOC: NEPD 15:00 → NEDA 18:51 → OBSVTOIN 18:52 → INTOOBSV 18:52 → UNDOADMOB 18:52 → NEPHCDU 22:08 → NEDA 22:08 → NEPHCDU 05-15 21:53 → UNDODISOB 05-16 17:32
PROVIDERS: ADMIT Specialist; ATTEND Specialist
DX: A41.9 Sepsis, unspecified organism (principal); E87.2 Acidosis; K76.0 Fatty (change of) liver, not elsewhere classified; E27.8 Other specified disorders of adrenal gland; E11.65 Type 2 diabetes mellitus with hyperglycemia; Z96.1 Presence of intraocular lens; R11.2 Nausea with vomiting, unspecified; I10 Essential (primary) hypertension; R10.11 Right upper quadrant pain; E66.9 Obesity, unspecified; E78.5 Hyperlipidemia, unspecified; R14.0 Abdominal distension (gaseous); R12 Heartburn; Z68.31 Body mass index [BMI] 31.0-31.9, adult; R65.20 Severe sepsis without septic shock; Z23 Encounter for immunization; Z79.899 Other long term (current) drug therapy; Z79.84 Long term (current) use of oral hypoglycemic drugs; Z98.890 Other specified postprocedural states; Z87.891 Personal history of nicotine dependence
CPT/HCPCS: 74177; 76705; 78227; 80048; 80076; 81001; 82948; 83605; 83690; 85025; 85610; 85730; 87040; 90732; 96374; 96375; A9537; J0696; J0780; J1200; J1644; J1815; J2405; J2543; J2805; J7030; Q9967

== ENCOUNTER → 2017-05-17 | Day surgery (SDC) | payer OTHER ==
[~2017-05-17] VITALS: Ht 170.2 cm; Wt 91.0 kg
[~2017-05-17] MED LIST changes: +BRIN1SUS2 LEFT EYE; +CHLORHEXIDINE GLUCONATE 2 % 1 PACK (2 CLOTHS) TOPICAL PRN; +CYCLOPENTOLATE HCL 1% OPHT SOLN 2 ML BTL ONE; +EPINEPHrine-Lidocaine/BSS (PF/SF) 4-120 mg/16 mL OPTH SYR LEFT EYE ONE; +EPINEPHrine-Lidocaine/BSS (PF/SF) 4-120 mg/16 mL OPTH SYR ONE; +FAMOTIDINE 20 MG/2 ML VIAL ONE; +HYDROmorphone HCL PF 1 MG/ML VIAL ONE; +INSULIN HUMAN REGULAR 1,000 UNITS/10 ML VIAL SQ PRN; +LACTATED RINGER'S 1000 ML IV PRN; +LOSA100T2 PO; -LOSA100T3 PO; +METOPROLOL TARTRATE 25 MG TAB PO PRN; +MIDAZOLAM HCL 2 MG/2 ML VIAL ONE; +MORPHINE SULFATE 4 MG/ML INJ ONE; +NEPA0.3D EACH EYE; +ONDANSETRON HCL 4 MG/2 ML VIAL IV PUSH ONE; +PANT40TA3 PO; +PHENYLEPHRINE HCL 10% OPTH SOLN 5 ML BTL ONE; +POVIDONE IODINE 5% (ANTISEPSIS KIT) 4 APPLICATIONS EACH NARE PRN; +PRED1SUS EACH EYE; +PROPOFOL 200 MG/20 ML AMP IV ONE; +SODIUM CHLORID 0.9% 500 ML IV PRN; +TETRACAINE 0.5% OPTH SOLN 4 ML BTL ONE; +TIMO0.5S30 LEFT EYE; +TROPICAMIDE 1% OPHT SOLN 15 ML BTL ONE; +VISCOAT OPHT IRRIG SOLN 0.75 ML SYRINGE LEFT EYE ONE; +VISCOAT OPHT IRRIG SOLN 0.75 ML SYRINGE ONE; +acetaZOLAMIDE SEQUELS 500 MG SUSTAINED RELEASE CAP ONE; +ePHEDrine/NS 25 MG/5 ML SYR IV ONE
[2017-05-17 10:02] VITALS: BP 174/85; PULSE 78; RESP 16; TEMP 98; O2SAT 96
[2017-05-17] MEDS: TROPICAMIDE 1% OPHT SOLN 15 ML BTL RIGHT EYE SCH ×3 (10:08→10:18)
[2017-05-17] MEDS: PHENYLEPHRINE HCL 10% OPTH SOLN 5 ML BTL RIGHT EYE SCH ×3 (10:08→10:18)
[2017-05-17] MEDS: TETRACAINE 0.5% OPTH SOLN 4 ML BTL RIGHT EYE SCH ×3 (10:08→10:18)
[2017-05-17] MEDS: CYCLOPENTOLATE HCL 1% OPHT SOLN 2 ML BTL RIGHT EYE SCH ×3 (10:08→10:18)
--- NOTE | 2017-05-17 12:36 | PD.OP ---
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 She was put under general anesthesia and prepped and draped in the usual sterile fashion for ophthalmic surgery. A wire lid speculum was placed in the left eye. A paracentesis incision was created at the 5 o'clock position on the limbus. Epishugarcaine and viscoelastic was injected into the anterior chamber. The old nylon suture was removed and the main incision was created at the 2 o'clock position on the limbus with a 2.4 mm keratome. Hydrodissection was used to separate the residual cortical material from the capsule. Irrigation and aspiration was used to remove the remaining cortical material underneath the lens. Viscoelastic was removed with irrigation and aspiration. The incisions were irrigated and found to be watertight. A 10-0 nylon suture was placed on the main incision. Tobradex ointment, a patch, and shield were placed on the left eye. The patient was sent to PACU in stable condition. She was given 500mg of Diamox. Nguyen Aguilar MD May 17, 2017 12:35
[2017-05-17 14:40] VITALS: BP 139/74; PULSE 85; RESP 16; TEMP 98.2; O2SAT 97
== END | disposition home or self-care (01) ==
LOC: PHSDC 09:33
PROVIDERS: ATTEND Ophthalmology
DX: H25.012 Cortical age-related cataract, left eye (principal); E78.5 Hyperlipidemia, unspecified; Z79.899 Other long term (current) drug therapy
CPT/HCPCS: 00142; 66840; 82948; J1170; J2250; J2270; J2405; J3010; J7040

== ENCOUNTER → 2017-07-04 | Outpatient (CLI) | payer OTHER ==
[~2017-07-04] MED LIST changes: -BRIN1SUS2 LEFT EYE; -CHLORHEXIDINE GLUCONATE 2 % 1 PACK (2 CLOTHS) TOPICAL PRN; -CYCLOPENTOLATE HCL 1% OPHT SOLN 2 ML BTL ONE; -EPINEPHrine-Lidocaine/BSS (PF/SF) 4-120 mg/16 mL OPTH SYR LEFT EYE ONE; -EPINEPHrine-Lidocaine/BSS (PF/SF) 4-120 mg/16 mL OPTH SYR ONE; -FAMOTIDINE 20 MG/2 ML VIAL ONE; -HYDROmorphone HCL PF 1 MG/ML VIAL ONE; -INSULIN HUMAN REGULAR 1,000 UNITS/10 ML VIAL SQ PRN; -LACTATED RINGER'S 1000 ML IV PRN; -METOPROLOL TARTRATE 25 MG TAB PO PRN; -MIDAZOLAM HCL 2 MG/2 ML VIAL ONE; -MORPHINE SULFATE 4 MG/ML INJ ONE; -NEPA0.3D EACH EYE; +NEPA0.3D LEFT EYE; -NEPA0.3D RIGHT EYE; -ONDANSETRON HCL 4 MG/2 ML VIAL IV PUSH ONE; -PHENYLEPHRINE HCL 10% OPTH SOLN 5 ML BTL ONE; -POVIDONE IODINE 5% (ANTISEPSIS KIT) 4 APPLICATIONS EACH NARE PRN; -PRED1SUS EACH EYE; -PRED1SUS RIGHT EYE; +PRED1SUS6 LEFT EYE; -PROPOFOL 200 MG/20 ML AMP IV ONE; -SODIUM CHLORID 0.9% 500 ML IV PRN; -TETRACAINE 0.5% OPTH SOLN 4 ML BTL ONE; -TIMO0.5S30 LEFT EYE; -TROPICAMIDE 1% OPHT SOLN 15 ML BTL ONE; -VIGA0.5D LEFT EYE; -VISCOAT OPHT IRRIG SOLN 0.75 ML SYRINGE LEFT EYE ONE; -VISCOAT OPHT IRRIG SOLN 0.75 ML SYRINGE ONE; +[UNRECOGNIZED DRUG - CODE] LEFT EYE; -acetaZOLAMIDE SEQUELS 500 MG SUSTAINED RELEASE CAP ONE; -ePHEDrine/NS 25 MG/5 ML SYR IV ONE
[2017-07-04 07:15] LABS: AUTOMATED NEUTROPHIL # 4.7 TH/MM3 (1.8-7.7); BASOPHIL % 0.7 % (0.0-2.0); EOSINOPHIL # 0.3 TH/MM3 (0-0.4); EOSINOPHIL % 3.7 % (0.0-4.0); HEMATOCRIT 42.5 % (35.0-46.0); HEMO FLAGS DIFF FINAL; LYMPH % 19.6 % (9.0-44.0); LYMPHOCYTE # 1.4 TH/MM3 (1.0-4.8); MEAN CELL VOLUME 88.9 FL (80.0-100.0); MEAN CORPUSCULAR HEMOGLOBIN 30.6 PG (27.0-34.0); MEAN CORPUSCULAR HGB CONC 34.4 % (32.0-36.0); MONO % 9.6 % (0.0-8.0); NEUT % 66.4 % (16.0-70.0); PLATELET COUNT 255 TH/MM3 (150-450); RED BLOOD COUNT 4.79 MIL/MM3 (4.00-5.30); RED CELL DISTRIBUTION WIDTH 13.3 % (11.6-17.2); WHITE BLOOD COUNT 7.1 TH/MM3 (4.0-11.0)
[2017-07-04 07:34] LABS: ANION GAP 8 MEQ/L (5-15); AST (GOT) 19 U/L (15-37); BICARBONATE 28.5 MEQ/L (21.0-32.0); BLOOD UREA NITROGEN 14 MG/DL (7-18); CHLORIDE 101 MEQ/L (98-107); GLOMERULAR FILTRATION RATE 113 ML/MIN (>89); GLUCOSE,FASTING 244 MG/DL (74-99); POTASSIUM 4.1 MEQ/L (3.5-5.1); SODIUM (NA) 137 MEQ/L (136-145)
[2017-07-04 07:35] LABS: ALT (GPT) 38 U/L (10-53)
[2017-07-04 07:37] LABS: ALKALINE PHOSPHATASE 76 U/L (45-117); HDL CHOLESTEROL 65.1 MG/DL (40.0-60.0); LDL CHOLESTEROL 67 MG/DL (0-99); TOTAL BILIRUBIN ADULT 0.5 MG/DL (0.2-1.0)
[2017-07-04 11:54] LABS: HEMOGLOBIN A1b 3.1 %; HEMOGLOBIN LA1C 3.1 %; HEMOGLOBIN P3 5.1 %
== END ==
LOC: CLAB 06:44
PROVIDERS: ATTEND Family Medicine
DX: E78.2 Mixed hyperlipidemia (principal); E11.9 Type 2 diabetes mellitus without complications; D64.9 Anemia, unspecified; Z79.899 Other long term (current) drug therapy
CPT/HCPCS: 36415; 80053; 80061; 82043; 83036; 85025

== ENCOUNTER → 2017-10-10 | Outpatient (CLI) | payer OTHER ==
[2017-10-10 16:17] LABS: ANION GAP 8 MEQ/L (5-15); BICARBONATE 29.4 MEQ/L (21.0-32.0); BLOOD UREA NITROGEN 16 MG/DL (7-18); CHLORIDE 100 MEQ/L (98-107); GLOMERULAR FILTRATION RATE 104 ML/MIN (>89); GLUCOSE,FASTING 118 MG/DL (74-99); SODIUM (NA) 137 MEQ/L (136-145)
[2017-10-10 16:18] LABS: POTASSIUM 4.2 MEQ/L (3.5-5.1)
[2017-10-10 22:23] LABS: HEMOGLOBIN A1b 2.5 %; HEMOGLOBIN Ao 80.9 %; HEMOGLOBIN LA1C 2.4 %; HEMOGLOBIN P3 4.3 %
== END ==
LOC: CLAB 15:04
DX: E11.65 Type 2 diabetes mellitus with hyperglycemia (principal)
CPT/HCPCS: 36415; 80048; 83036

== ENCOUNTER 2018-02-05 06:36 | Emergency (ER) | payer OTHER ==
[~2018-02-05] VITALS: Ht 167.6 cm; Wt 90.0 kg
[2018-02-05 06:37] VITALS: BP 188/92; PULSE 92; RESP 18; TEMP 98.2; O2SAT 97
[2018-02-05] MEDS ORDERED: FISHCAP4 PO (06:55)
[2018-02-05] MEDS ORDERED: CALC1TAB12 PO (06:55)
--- NOTE | 2018-02-05 07:12 | PD ---
HPI Chief Complaint: Cold / Flu Symptoms Time Seen by Provider: 06:55 Travel History International Travel<30 days: No Contact w/Intl Traveler<30days: No Traveled to known affect area: No History of Present Illness HPI Patient is a 62-year-old female presenting to emerge department for evaluation of sore throat, headache. Patient states her symptoms started Monday, they have gotten progressively worse since that time. This morning she attempted to go to work when she felt subjective fevers and chills. She states she felt warm. She denies any nasal congestion, cough, chest pain, shortness of breath, abdominal pain. She reports the pain is a 5 out of 10. Symptom onset was gradual, symptoms are moderate in nature. There are no alleviating factors. Patient reports a history of hypertension and diabetes. She states she took her blood pressure medication this morning. PFSH Past Medical History Chemotherapy: Yes Diabetes: Yes Gastrointestinal Disorders: Yes Hypertension: Yes Immunizations Current: Yes Pneumonia: Yes Menopausal: Yes Dilation and Curettage (D&C): Yes Past Surgical History Gynecologic Surgery: Yes (Tubal ligation) Hysterectomy: Yes (PARTIAL ) Neurologic Surgery: Yes ([facility] 06/2015) Other Surgery: Yes (left eye cataract) Social History Alcohol Use: Yes (OCCASIONAL) Tobacco Use: No (QUIT 15 YEARS AGO ) Substance Use: No Allergies-Medications (Allergen,Severity, Reaction): Coded Allergies: No Known Allergies (Unverified Adverse Reaction, Unknown, 02/05/18) Reported Meds & Prescriptions Reported Meds & Active Scripts Active Reported Calcium 500 +D (Calcium Carbonate-Cholecalciferol) 500-400 Mg-Unit Tab 1 Tab PO DAILY Fish Oil + D3 (Fish Oil-Cholecalciferol) 1,200-1,000 Mg-Unit Cap 1 Cap PO DAILY Losartan-Hydrochlorothiazide 100-25 Mg Tab 1 Tab PO DAILY Atorvastatin (Atorvastatin Calcium) 10 Mg Tab 10 Mg PO HS Metformin (Metformin HCl) 500 Mg Tab 500 Mg PO BIDPC With meals Glimepiride 4 Mg Tab 4 Mg PO BID Take with breakfast or first main meal Review of Systems Except as stated in HPI: all other systems reviewed are Neg General / Constitutional: Positive: Fever, Chills HENT: Positive: Headaches, Sore Throat, No: Congestion, Neck Pain Cardiovascular: No: Chest Pain or Discomfort Respiratory: No: Cough, Shortness of Breath Gastrointestinal: No: Nausea, Abdominal Pain Musculoskeletal: No: Myalgias Physical Exam Narrative GENERAL: Well-developed, well-nourished, alert female. Presenting in no acute distress. SKIN: Warm and dry. HEAD: Atraumatic. Normocephalic. EYES: Pupils equal and round. No scleral icterus. No injection or drainage. ENT: No nasal bleeding or discharge. Mucous membranes pink and moist. 1+ tonsillar hypertrophy bilaterally. Mild erythema noted posterior pharynx. Uvula is midline, airway is patent. NECK: Trachea midline. No JVD. Submandibular lymphadenopathy noted. CARDIOVASCULAR: Regular rate and rhythm. RESPIRATORY: No accessory muscle use. Clear to auscultation. Breath sounds equal bilaterally. GASTROINTESTINAL: Abdomen soft, non-tender, nondistended. Hepatic and splenic margins not palpable. MUSCULOSKELETAL: Extremities without clubbing, cyanosis, or edema. No obvious deformities. NEUROLOGICAL: Awake and alert. No obvious cranial nerve deficits. Motor grossly within normal limits. Five out of 5 muscle strength in the arms and legs. Normal speech. PSYCHIATRIC: Appropriate mood and affect; insight and judgment normal. Data Data Last Documented VS Vital Signs Date Time Temp Pulse Resp B/P (MAP) Pulse Ox O2 Delivery O2 Flow Rate FiO2 02/05/18 08:04 72 17 185/93 (123) 98 Room Air 02/05/18 06:37 98.2 Orders Orders Group A Rapid Strep Screen (02/05/18 07:03) Ibuprofen (Motrin) (02/05/18 07:15) Strep Culture (Group A) (02/05/18 07:10) [facility] Medical Decision Making Medical Screen Exam Complete: Yes Emergency Medical Condition: Yes Interpretation(s) Vital Signs Date Time Temp Pulse Resp B/P (MAP) Pulse Ox O2 Delivery O2 Flow Rate FiO2 02/05/18 06:37 98.2 92 18 188/92 (124) 97 Differential Diagnosis Strep pharyngitis versus URI versus viral syndrome versus allergic rhinitis versus other Narrative Course Patient is well-appearing 62-year-old female presenting for evaluation of sore throat and headache. Patient is mildly hypertensive on arrival, she has a history of hypertension and reports compliance with medications. Patient will be given ibuprofen now. Strep screen ordered and pending. Rapid strep is negative. Patient will be treated empirically to do physical exam findings. She is encouraged to follow-up with her primary doctor. She is encouraged to return to emergency department for any new or worsening symptoms. She was advised to complete full course of antibiotics as prescribed even if she begins to feel better. Patient verbalized understanding of instructions. Patient stable for discharge. Diagnosis Primary Impression: Pharyngitis Qualified Codes: J02.9 - Acute pharyngitis, unspecified Referrals: Primary Care Physician 3 days Patient Instructions: General Instructions, Pharyngitis (ED), Viral Syndrome ( [place]) Additional Instructions: Follow-up with your primary doctor Take medications as directed Complete full course of antibiotics as prescribed Return to emergency department for any new worsening symptoms Take [id number] acetaminophen or ibuprofen as needed and as directed for body aches or fevers Your blood pressure was elevated in the emergency department today. Please monitor and follow-up with your primary doctor Med/Other Pt SpecificInfo: Prescription(s) given Scripts Amoxicillin (Amoxicillin) 875 Mg Tab 875 MG PO BID for Infection, #20 TAB 0 Refills Prov: Brissa Lamb 02/05/18 Disposition: 01 DISCHARGE HOME Condition: Stable Brissa Lamb Feb 05, 2018 07:12
[2018-02-05] MEDS ORDERED: IBUPROFEN 800 MG TAB PO ONE (07:15)
[2018-02-05 08:04] VITALS: BP 185/93; PULSE 72; RESP 17; O2SAT 98
[2018-02-05] MEDS ORDERED: AMOX875T PO (08:13)
== END 2018-02-05 08:22 | disposition home or self-care (01) ==
LOC: NEPD 06:36
DX: J02.9 Acute pharyngitis, unspecified (principal); E11.9 Type 2 diabetes mellitus without complications; I10 Essential (primary) hypertension; Z79.84 Long term (current) use of oral hypoglycemic drugs; Z87.891 Personal history of nicotine dependence
CPT/HCPCS: 87081; 87880; 99283